=== PATIENT | male | born 2000 | race Caucasian/White ===

== ENCOUNTER 2020-07-01 14:26 | Emergency (ER) | payer OTHER ==
[~2020-07-01 14:26] MED LIST: PERCOCET 5-3251 EACH PO; PROTONIX 40MG T40 MG PO
[2020-07-01 15:22] LABS: BASOPHIL 0.4 % (0-2); EOSINOPHIL 0.1 % (0-5); HCT 49.4 % (42.0-52.0); LYMPHOCYTE 16.1 % (15-48); MCH 31.3 pg (25.0-31.0); MONOCYTE 5.5 % (0-12); MPV 9.4 fL (6.0-9.5); NEUTROPHIL 77.4 % (41-80); NRBC 0; PLT 312 K/uL (150-400); RBC 5.37 M/uL (4.70-6.00); RDW 12.7 % (11.5-14.0)
[2020-07-01 15:27] LABS: HGB 16.8 g/dl (13.2-18.0)
[2020-07-01 15:44] LABS: BUN/CREAT RATIO (CALC) 16.3 RATIO; CREATININE 0.86 mg/dL (0.67-1.17); POTASSIUM 3.8 mmol/L (3.5-5.1)
== END 2020-07-01 16:33 | disposition home or self-care (01) ==
LOC: FER 14:26
PROVIDERS: Emergency Medicine
DX: R07.89 Other chest pain (principal); R00.2 Palpitations; R53.1 Weakness; Z88.6 Allergy status to analgesic agent
CPT/HCPCS: 36415; 80048; 84443; 84484; 85025; 93005

== ENCOUNTER 2020-08-15 16:44 | Emergency (ER) | payer OTHER ==
[2020-08-15 20:08] LABS: BASOPHIL 0.8 % (0-2); EOSINOPHIL 1.3 % (0-5); HCT 44.2 % (42.0-52.0); HGB 15.3 g/dl (13.2-18.0); LYMPHOCYTE 40.6 % (15-48); MCH 31.8 pg (25.0-31.0); MCHC 34.6 g/dL (32.0-36.0); MCV 91.9 fL (78.0-100.0); MONOCYTE 8.1 % (0-12); MPV 9.8 fL (6.0-9.5); NRBC 0; PLT 272 K/uL (150-400); RBC 4.81 M/uL (4.70-6.00); RDW 12.4 % (11.5-14.0); WBC 8.6 K/uL (4.0-10.5)
[2020-08-15 20:35] LABS: BILIRUBIN - TOTAL 0.3 mg/dL (0.2-1.0); BUN/CREAT RATIO (CALC) 20.6 RATIO; CREATININE 0.68 mg/dL (0.67-1.17); GLOBULIN (CALCULATION) 3.4 g/dL; POTASSIUM 3.8 mmol/L (3.5-5.1); TOTAL PROTEIN 7.4 g/dL (6.4-8.2)
[2020-08-15 20:38] LABS: CKMB <0.5 ng/mL (0.0-3.6)
== END 2020-08-15 21:20 | disposition home or self-care (01) ==
LOC: FER 16:44
PROVIDERS: Emergency Medicine Emergency Medical Services
DX: R55 Syncope and collapse (principal); R53.1 Weakness; I10 Essential (primary) hypertension; Z87.19 Personal history of other diseases of the digestive system; Z88.6 Allergy status to analgesic agent
CPT/HCPCS: 36415; 71045; 80053; 82550; 82553; 84484; 85025; 85379; 93005; J7030

== ENCOUNTER 2020-08-31 12:15 | Emergency (ER) | payer OTHER ==
[2020-08-31 13:36] LABS: HCT 43.4 % (42.0-52.0); HGB 15.2 g/dl (13.2-18.0); MCH 32.3 pg (25.0-31.0); MCV 92.1 fL (78.0-100.0); MONOCYTE 9.3 % (0-12); MPV 10.4 fL (6.0-9.5); NEUTROPHIL 46.5 % (41-80); NRBC 0; PLT 254 K/uL (150-400); RBC 4.71 M/uL (4.70-6.00); RDW 12.3 % (11.5-14.0); WBC 5.1 K/uL (4.0-10.5)
[2020-08-31 13:49] LABS: ALBUMIN 4.1 g/dL (3.4-5.0); BILIRUBIN - TOTAL 0.6 mg/dL (0.2-1.0); BUN/CREAT RATIO (CALC) 9.1 RATIO; CREATININE 0.88 mg/dL (0.67-1.17); POTASSIUM 4.1 mmol/L (3.5-5.1); TOTAL PROTEIN 7.1 g/dL (6.4-8.2)
[2020-08-31 14:09] LABS: BILIRUBIN NEGATIVE (NEGATIVE); BLOOD NEGATIVE Ery/uL (NEGATIVE); CLARITY CLEAR (CLEAR); COLOR YELLOW (YELLOW); GLUCOSE (U) NORMAL (NORMAL); LEUKOCYTES NEGATIVE Leu/uL (NEGATIVE); NITRITE NEGATIVE (NEGATIVE); PROTEIN NEGATIVE (NEGATIVE); UROBILINOGEN 0.2 mg/dL (0.2-1.0); pH 8.5 (5.0-9.0)
[2020-08-31 14:15] LABS: AMPHETAMINES NEGATIVE (NEGATIVE); BARBITURATES NEGATIVE (NEGATIVE); ECSTASY (MDMA) NEGATIVE (NEGATIVE); MARIJUANA (THC) NEGATIVE (NEGATIVE); METHADONE NEGATIVE (NEGATIVE); OPIATES NEGATIVE (NEGATIVE); OXYCODONE NEGATIVE (NEGATIVE)
[2020-08-31 14:59] LABS: CKMB <0.5 ng/mL (0.0-3.6)
== END 2020-08-31 15:34 | disposition home or self-care (01) ==
LOC: FER 12:15
PROVIDERS: Nurse Practitioner Family
DX: R07.89 Other chest pain (principal); Z88.6 Allergy status to analgesic agent; Z98.890 Other specified postprocedural states
CPT/HCPCS: 36415; 71046; 80053; 80305; 81003; 82553; 84484; 85025; 85379; 93005

== ENCOUNTER 2020-09-30 16:34 | Emergency (ER) | payer OTHER ==
[2020-09-30 19:00] LABS: BASOPHIL 0.9 % (0-2); EOSINOPHIL 1.9 % (0-5); HCT 39.8 % (42.0-52.0); HGB 13.6 g/dl (13.2-18.0); LYMPHOCYTE 42.6 % (15-48); MCH 32.2 pg (25.0-31.0); MCHC 34.2 g/dL (32.0-36.0); MCV 94.3 fL (78.0-100.0); MONOCYTE 10.7 % (0-12); MPV 10.1 fL (6.0-9.5); NEUTROPHIL 43.7 % (41-80); NRBC 0.6; PLT 239 K/uL (150-400); RBC 4.22 M/uL (4.70-6.00); RDW 12.9 % (11.5-14.0); WBC 5.3 K/uL (4.0-10.5)
[2020-09-30 19:22] LABS: ALBUMIN 4.1 g/dL (3.4-5.0); BILIRUBIN - TOTAL 0.4 mg/dL (0.2-1.0); BUN/CREAT RATIO (CALC) 15.8 RATIO; CREATININE 0.76 mg/dL (0.67-1.17); GLOBULIN (CALCULATION) 3.1 g/dL; POTASSIUM 4.1 mmol/L (3.5-5.1); TOTAL PROTEIN 7.2 g/dL (6.4-8.2)
[2020-09-30] MEDS ORDERED: COLCRYS0.6 MG PO (20:43)
== END 2020-09-30 20:52 | disposition home or self-care (01) ==
LOC: FER 16:34
PROVIDERS: Emergency Medicine
DX: R07.9 Chest pain, unspecified (principal); R06.02 Shortness of breath; Z88.6 Allergy status to analgesic agent
CPT/HCPCS: 36415; 71045; 80053; 84484; 85025; 85379; 93005

== ENCOUNTER 2021-01-14 12:57 | Emergency (ER) | payer OTHER ==
[~2021-01-14 12:57] MED LIST changes: +COLCRYS0.6 MG PO
[2021-01-14 14:23] LABS: BASOPHIL 0.8 % (0-2); EOSINOPHIL 1.2 % (0-5); HCT 43.5 % (42.0-52.0); HGB 14.4 g/dl (13.2-18.0); LYMPHOCYTE 27.4 % (15-48); MCHC 33.1 g/dL (32.0-36.0); MCV 93.8 fL (78.0-100.0); MPV 9.5 fL (6.0-9.5); NEUTROPHIL 60.4 % (41-80); NRBC 0; PLT 284 K/uL (150-400); RBC 4.64 M/uL (4.70-6.00); RDW 13.2 % (11.5-14.0); WBC 6.5 K/uL (4.0-10.5)
[2021-01-14 14:52] LABS: ALBUMIN 3.7 g/dL (3.4-5.0); BILIRUBIN - TOTAL 0.3 mg/dL (0.2-1.0); BUN/CREAT RATIO (CALC) 13.1 RATIO; CREATININE 0.61 mg/dL (0.67-1.17); GLOBULIN (CALCULATION) 2.7 g/dL; POTASSIUM 4.1 mmol/L (3.5-5.1); TOTAL PROTEIN 6.4 g/dL (6.4-8.2)
== END 2021-01-14 16:00 | disposition home or self-care (01) ==
LOC: FER 12:57
PROVIDERS: Nurse Practitioner Family
DX: R07.89 Other chest pain (principal); E03.9 Hypothyroidism, unspecified; Z88.6 Allergy status to analgesic agent
CPT/HCPCS: 36415; 71045; 80053; 84443; 84484; 85025

== ENCOUNTER 2021-10-04 13:26 | Emergency (ER) | payer OTHER ==
[2021-10-04 16:16] LABS: BASOPHIL 0.7 % (0-2); EOSINOPHIL 1.6 % (0-5); HCT 44.1 % (42.0-52.0); HGB 14.8 g/dl (13.2-18.0); LYMPHOCYTE 18.2 % (15-48); MCH 30.6 pg (25.0-31.0); MCHC 33.6 g/dL (32.0-36.0); MCV 91.3 fL (78.0-100.0); MONOCYTE 9.5 % (0-12); MPV 9.7 fL (6.0-9.5); NEUTROPHIL 69.7 % (41-80); NRBC 0; PLT 324 K/uL (150-400); RBC 4.83 M/uL (4.70-6.00); RDW 12.9 % (11.5-14.0); WBC 8.7 K/uL (4.0-10.5)
[2021-10-04 16:29] LABS: BUN/CREAT RATIO (CALC) 14.3 RATIO; CREATININE 0.7 mg/dL (0.67-1.17); POTASSIUM 4.1 mmol/L (3.5-5.1)
[2021-10-04 17:40] LABS: CORONAVIRUS 2019 SARS-COV-2 NEGATIVE (NEGATIVE); INFLUENZA A NAA NEGATIVE (NEGATIVE)
== END 2021-10-04 18:26 | disposition home or self-care (01) ==
LOC: FER 13:26
PROVIDERS: Nurse Practitioner Family
DX: R07.89 Other chest pain (principal); Z88.6 Allergy status to analgesic agent; Z20.822 Contact with and (suspected) exposure to COVID-19
CPT/HCPCS: 36415; 71045; 80048; 84484; 85025; 93005; U0002

== ENCOUNTER 2021-11-02 15:24 | Emergency (ER) | payer OTHER ==
[2021-11-02 16:25] LABS: BASOPHIL 0.4 % (0-2); EOSINOPHIL 0.3 % (0-5); HCT 42.6 % (42.0-52.0); HGB 14.1 g/dl (13.2-18.0); LYMPHOCYTE 8.4 % (15-48); MCH 29.6 pg (25.0-31.0); MCHC 33.1 g/dL (32.0-36.0); MCV 89.3 fL (78.0-100.0); MONOCYTE 10.4 % (0-12); MPV 9.5 fL (6.0-9.5); NEUTROPHIL 80.3 % (41-80); NRBC 0; PLT 279 K/uL (150-400); RBC 4.77 M/uL (4.70-6.00); RDW 13.3 % (11.5-14.0); WBC 13.7 K/uL (4.0-10.5)
[2021-11-02 16:39] LABS: BUN/CREAT RATIO (CALC) 16.2 RATIO; CREATININE 0.68 mg/dL (0.67-1.17); POTASSIUM 3.6 mmol/L (3.5-5.1)
[2021-11-02 16:51] LABS: LACTIC ACID 0.8 mmol/L (0.4-1.9)
[2021-11-02 17:12] LABS: CORONAVIRUS 2019 SARS-COV-2 NEGATIVE (NEGATIVE); INFLUENZA A NAA NEGATIVE (NEGATIVE)
[2021-11-02] MEDS ORDERED: MIRALAX17 GM PO (18:34)
== END 2021-11-02 18:43 | disposition home or self-care (01) ==
LOC: FER 15:24
PROVIDERS: Nurse Practitioner Family
DX: B34.9 Viral infection, unspecified (principal); Z20.822 Contact with and (suspected) exposure to COVID-19; Z28.310 Unvaccinated for COVID-19; Z88.6 Allergy status to analgesic agent
CPT/HCPCS: 36415; 71045; 80048; 83605; 84145; 85025; 87040; J7030; Q9967; U0002

== ENCOUNTER 2021-12-01 11:21 | Emergency (ER) | payer OTHER ==
[~2021-12-01 11:21] MED LIST changes: +MIRALAX17 GM PO
== END 2021-12-01 12:08 | disposition home or self-care (01) ==
LOC: FER 11:21
DX: B34.9 Viral infection, unspecified (principal); E03.9 Hypothyroidism, unspecified; Z20.822 Contact with and (suspected) exposure to COVID-19; Z28.310 Unvaccinated for COVID-19; Z88.6 Allergy status to analgesic agent; Z79.890 Hormone replacement therapy
CPT/HCPCS: 99284; U0002

== ENCOUNTER 2022-01-02 17:50 | Emergency (ER) | payer OTHER ==
[2022-01-02] MEDS ORDERED: CEPHALEXIN500 MG PO (18:52)
== END 2022-01-02 19:15 | disposition home or self-care (01) ==
LOC: FER 17:50
DX: L60.0 Ingrowing nail (principal); I10 Essential (primary) hypertension; Z23 Encounter for immunization; Z28.310 Unvaccinated for COVID-19; Z88.6 Allergy status to analgesic agent; Z79.899 Other long term (current) drug therapy
CPT/HCPCS: 90471; 90715